=== PATIENT | male | born 1995 | race Caucasian/White ===

== ENCOUNTER 2017-05-17 16:56 | Day surgery (SDC) | payer BC ==
[~2017-05-17] VITALS: Ht 177.8 cm; Wt 93.6 kg
[2017-05-17 21:15] VITALS: BP 135/70; PULSE 49; TEMP 97.6
[2017-05-17 21:30] VITALS: BP 118/56; PULSE 49
[2017-05-17 21:45] VITALS: BP 118/61; PULSE 50
[2017-05-17 22:00] VITALS: BP 127/56; PULSE 100
[2017-05-17 22:30] VITALS: BP 122/53; PULSE 57
[2017-05-17 23:00] VITALS: BP 118/82; PULSE 58
[2017-05-18] VITALS: BP 118/66; PULSE 62; TEMP 97.4
[2017-05-18 01:33] VITALS: BP 118/66; PULSE 62; TEMP 97.4
[2017-05-18 05:32] VITALS: BP 104/45; PULSE 49; TEMP 98.8
[2017-05-18 09:17] VITALS: BP 122/65; PULSE 52; TEMP 98.5
[2017-05-18] MEDS ORDERED: ROXICODONE 55 MG/TAB PO (09:55)
== END 2017-05-18 10:00 | disposition home or self-care (01) ==
LOC: COL.ER 16:56 → SURG 19:20 → SDCO 19:20
DX: K35.80 Unspecified acute appendicitis (principal)
CPT/HCPCS: OP; J0171; J1100; J1885; J2270; J2405; J2543; J2704; J2710; J3010; J7030; J7042; J7050; Q9967